=== PATIENT | female | born 1990 | race Two or more races ===

== ENCOUNTER 2020-08-20 14:43 | Emergency (ER) | payer OTHER ==
[~2020-08-20] VITALS: Ht 139.7 cm; Wt 75.3 kg
[2020-08-20] MEDS ORDERED: OMEPRAZOLE MAGN20 MG (15:13)
[2020-08-20] MEDS ORDERED: LOTRIMIN ULTRA12 GM (15:13)
[2020-08-20] MEDS ORDERED: VALTREX1000 MG PO (16:29)
[2020-08-20] MEDS ORDERED: ZOVIRAX30 GM TOP (16:29)
[2020-08-20] MEDS ORDERED: KETO10TA2 PO (16:29)
== END 2020-08-20 16:36 | disposition home or self-care (01) ==
LOC: ER 14:43
DX: A60.04 Herpesviral vulvovaginitis (principal)

== ENCOUNTER 2021-04-24 12:39 | Emergency (ER) | payer OTHER ==
[~2021-04-24] VITALS: Ht 139.7 cm; Wt 80.3 kg
[~2021-04-24 12:39] MED LIST: KETO10TA2 PO; LOTRIMIN ULTRA12 GM; OMEPRAZOLE MAGN20 MG; VALTREX1000 MG PO; ZOVIRAX30 GM TOP
== END 2021-04-24 23:24 | disposition home or self-care (01) ==
LOC: ER 12:39
DX: R42 Dizziness and giddiness (principal); K29.60 Other gastritis without bleeding

== ENCOUNTER 2022-12-28 15:06 | Emergency (ER) | payer OTHER ==
[~2022-12-28] VITALS: Ht 139.7 cm; Wt 80.3 kg
== END 2022-12-28 17:35 | disposition home or self-care (01) ==
LOC: ER 15:06
DX: R51.9 Headache, unspecified (principal)

== ENCOUNTER 2024-03-03 14:57 | Emergency (ER) | payer OTHER ==
[~2024-03-03] VITALS: Ht 139.7 cm; Wt 80.3 kg
[2024-03-03] MEDS ORDERED: ACETAMINOPHEN 500 MG GEL..CAP PO ONE (16:00)
[2024-03-03 16:37] LABS: PH,URINE 6.5 (5.0-8.0); URINE APPEARANCE Clear; URINE BILIRRUBIN Negative (NEGATIVE); URINE BLOOD NHT; URINE COLOR Yellow; URINE GLUCOSE Negative (NEGATIVE); URINE KETONE Negative (NEGATIVE); URINE LEUKOCYTE Moderate; URINE NITRATE Negative; URINE PROTEIN Negative (NEGATIVE)
[2024-03-03 16:39] LABS: HEMATOCRIT 35.9 % (36.0-45.00); HEMOGLOBIN 11.8 g/dL (12.0-15.00); MEAN CELL VOLUME 73.6 fL (80.00-100.00); MEAN CORPUSCULAR HEMOGLOBIN 24.1 pg (27.00-32.0); MEAN CORPUSCULAR HGB CONC 32.8 g/dl (32.0-36.0); PLATELET COUNT 181 K/uL (150-450); RED BLOOD COUNT 4.88 M/uL (4.00-6.00); RED CELL DISTRIBUTION WIDTH 17.1 % (11.5-14.5)
[2024-03-03 16:40] LABS: URINE BACTERIA 845.4 uL (0.0-1933); URINE EPITHELIAL CELLS 31.2 uL (0.0-38.8); URINE RBC 16.4 uL (0.0-20.8); URINE WBC 94.4 uL (0.0-23.2)
[2024-03-03 16:47] LABS: URINE CAST 0.15 uL (0.0-1.40)
[2024-03-03 17:10] LABS: CALCIUM 9.2 mg/dL (8.5-10.1); CREATININE SERUM 0.7 mg/dL (0.55-1.02); GFR 95.79; POTASSIUM 3.53 mEq/L (3.5-5.1)
[2024-03-03] MEDS ORDERED: CEFTRIAXONE SODIUM 1,000 MG VIAL IV ONE (18:15)
[2024-03-03] MEDS ORDERED: KETOROLAC TROMETHAMINE 30 MG VIAL IV ONE (18:15)
[2024-03-03] MEDS ORDERED: 0.9 % SODIUM CHLORIDE 500 ML IV ONE (18:15)
[2024-03-03] MEDS ORDERED: BACTRIM DS TAB1 EACH PO (19:58)
== END 2024-03-03 20:26 | disposition home or self-care (01) ==
LOC: ER 14:59
PROVIDERS: Nurse Practitioner Family
DX: N39.0 Urinary tract infection, site not specified (principal); R10.2 Pelvic and perineal pain; D64.89 Other specified anemias
CPT/HCPCS: 36415; 74177; 96365; 96366; 99284; J0696; J1885; J7042; Q9965